=== PATIENT | female | born 1965 | race Caucasian/White ===

== ENCOUNTER 2018-09-26 13:08 | Emergency (ER) | payer BC ==
--- NOTE | 2018-09-26 14:41 | ED Physician Documentation ---
PD HPI FOCAL NEURO - Stated complaint Stated Complaint: R FOOT SWELLING/ALLERGIC REACTION - Chief complaint Chief Complaint: Allergic Rx - History obtained from History obtained from: Patient - History of Present Illness Timing - onset: How many days ago (2) Timing - duration: Days (2) Timing - details: Gradual onset Severity of deficit: Moderate Weakness: No: Face, Arm, Hand, Leg, Foot, Right, Left Numbness: Arm, Right. No: Face, Hand, Foot, Left Associated symptoms: No: Headache, Nausea / vomiting, Seizure, Syncope, Fall, Head injury, Chest pain, Neck pain, Back pain, Fever Contributing factors: negative: Anticoagulated, Vascular dz, Atrial fibrillation, Prosthetic heart valve Baseline status: positive: A&OX3, ambulatory, indep Recently seen: Not recently seen - Additional information Additional information: 52-year-old female presents to the emergency department stating that she has a bug bite to the right foot. She states that that is mildly swollen but states that she gets "strange allergic reactions". She states that since Wednesday she has had a [id number]-[id number] sensation in her right upper extremity with times when the arm will go completely numb. She has not had any other focal neurological deficits. Nothing makes it better or worse. She feels like it is worsening today however. She also states that it "feels cold on the inside". She states she has been told in the past that she has "wonky circulation". Review of Systems Ten Systems: 10 systems reviewed and negative Constitutional: denies: Fever, Chills Ears: denies: Ear pain Nose: denies: Rhinorrhea / runny nose, Congestion Cardiac: denies: Chest pain / pressure Respiratory: denies: Cough GI: denies: Abdominal Pain, Nausea, Vomiting, Diarrhea : denies: Dysuria Skin: denies: Rash Musculoskeletal: denies: Neck pain, Back pain Neurologic: denies: Headache PD PAST MEDICAL HISTORY - Past Medical History Past Medical History: No Cardiovascular: None Respiratory: None Neuro: None Endocrine/Autoimmune: None GI: None ADMINISTRATIVE COORDINATOR: None : None HEENT: Glaucoma Psych: Depression, Anxiety, Other Musculoskeletal: None Derm: None Other Past Medical History: anger disorder - Past Surgical History Past Surgical History: No - Present Medications Home Medications: Ambulatory Orders Medication Instructions Recorded Confirmed FLUoxetine [PROzac] 10 mg PO DAILY 09/26/18 09/26/18 predniSONE [Prednisone] 40 mg PO DAILY #10 tablet 09/26/18 - Allergies Allergies/Adverse Reactions: Allergies Allergy/AdvReac Type Severity Reaction Status Date / Time No Known Drug Allergies Allergy Verified 09/26/18 13:21 - Social History Does the pt smoke?: No Smoking Status: Never smoker Does the pt drink ETOH?: Yes Does the pt have substance abuse?: Yes Substance Use and Type: Marijuana - Immunizations Immunizations are current?: Yes - POLST Patient has POLST: No PD ED PE NORMAL - Vitals Vital signs reviewed: Yes - General General: Alert and oriented X 3, No acute distress, Well developed/nourished - HEENT HEENT: PERRL, Moist mucous membranes - Neck Neck: Supple, no meningeal sign - Cardiac Cardiac: RRR, Strong equal pulses - Respiratory Respiratory: No respiratory distress, Clear bilaterally - Abdomen Abdomen: Soft, Non tender, Non distended - Derm Derm: Warm and dry, No rash - Extremities Extremities: Other (Mild swelling to the right foot, no signs of infection.) - Neuro Neuro: Alert and oriented X 3, piano bench assembler 2-12 intact, No motor deficit, Normal speech, Other (Mild decreased sensation over the entirety of the right arm and wrist. Normal radial pulse. Brisk cap refill) Eye Opening: Spontaneous Motor: Obeys Commands Verbal: Oriented GCS Score: 15 - Psych Psych: Normal mood, Normal affect NIHSS - Time Time: 14:32 - Level of Consciousness Level of consciousness: (0) Alert, Keenly responsive LOC Questions: (0) Answers both Q's correct LOC Commands: (0) Performs both correctly - Gaze Best Gaze: (0) Normal - Visual Visual: (0) No loss - Facial Palsy Facial Palsy: (0) Normal, symmetrical movement - Motor Arms (both separate) Motor Arm (right): (0) No drift Motor Arm (left): (0) No drift - Motor Legs (both separate) Motor Leg (right): (0) No drift Motor Leg (left): (0) No drift - Limb Ataxia Limb Ataxia: (0) Absent - Sensory Sensory: (1) Ejrq-jv-eeymdqyx loss - Best Language Best Language: (0) No aphasia - Dysarthria Dysarthria: (0) Normal - Extinction and Inattention (formally neg Extinction and inattention: (0) No abnormality - Total Score/Results Total Score/Result: 1 Results - Vitals Vitals: Vital Signs - 24 hr 09/26/18 09/26/18 13:19 16:51 Temperature 36.8 C 36.5 C Heart Rate 59 L 50 L Respiratory 18 Rate Blood Pressure 126/88 H 156/85 H O2 Saturation 100 100 Oxygen O2 Source Room air - EKG (time done) 1446 Rate: Rate (enter#) (48) Rhythm: Sinus bradycardia [place]: Normal Intervals: Normal IA QRS: Normal Ischemia: Normal ST segments - Labs Labs: Laboratory Tests 09/26/18 09/26/18 09/26/18 15:05 15:09 15:09 WBC 6.3 RBC 4.59 Hgb 14.2 Hct 43.6 MCV 95.0 MCH 30.9 MCHC 32.6 RDW 12.6 Plt Count 212 MPV 9.1 Neut # (Auto) 3.1 Lymph # (Auto) 2.4 Clark # (Auto) 0.5 Eos # (Auto) 0.3 Baso # (Auto) 0.0 Absolute Nucleated RBC 0.00 Nucleated RBC % 0.0 Sodium 139 Potassium 3.6 Chloride 105 Carbon Dioxide 26 Anion Gap 8.0 BUN 12 Creatinine 0.8 Estimated GFR (MDRD) 75 L Glucose 91 Calcium 8.8 Phosphorus 2.7 Magnesium 2.1 Total Bilirubin 0.7 AST 19 ALT 17 Alkaline Phosphatase 62 Total Protein 7.0 Albumin 3.9 Globulin 3.1 Albumin/Globulin Ratio 1.3 Urine Color YELLOW Urine Clarity CLEAR Urine pH 7.0 Ur Specific [place] 1.015 Urine Protein NEGATIVE Urine Glucose (UA) NEGATIVE Urine Ketones NEGATIVE Urine Occult Blood NEGATIVE Urine Nitrite NEGATIVE Urine Bilirubin NEGATIVE Urine Urobilinogen 0.2 (NORMAL) Ur Leukocyte Esterase NEGATIVE Ur Microscopic Review NOT INDICATED Urine Culture Comments NOT INDICATED - Rads (name of study) head CT Radiology: Prelim report reviewed, EMP read contemporaneously, See rad report (No acute intracranial abnormality. Specifically, no evidence of acute infarct, hemorrhage, or mass lesion. ) R arm arterial doppler Radiology: Prelim report reviewed, EMP read contemporaneously, See rad report (Normal exam. Patent right upper extremity arteries. No evidence for hemodynamically significant stenosis or occlusion. ) PD MEDICAL DECISION MAKING - ED course Complexity details: reviewed results, re-evaluated patient, considered differential, d/w patient ED course: 52-year-old female with right arm paresthesias. Unclear etiology. She thinks this may be related to the allergic reaction in the foot. Will trial on steroids. No evidence of arterial insufficiency. No evidence of stroke. She should be followed up with her doctor for further testing including an MRI. Patient counseled regarding signs and symptoms for which I believe and urgent re-evaluation would be necessary. Patient with good understanding of and agreement to plan and is comfortable going home at this time This document was made in part using voice recognition software. While efforts are made to proofread this document, sound alike and grammatical errors may occur. Departure - Departure Disposition: 01 Home, Self Care Clinical Impression: Paresthesia Allergic reaction Qualifiers: Encounter type: initial encounter Qualified Code(s): T78.40XA - Allergy, unspecified, initial encounter Condition: Good Instructions: ED Allergic Reaction Local Other, ED Paraesthesias Follow-Up: MELVI THAKKAR MD [Primary Care Provider] - Prescriptions: predniSONE [Prednisone] 40 mg PO DAILY #10 tablet Comments: The cause of your symptoms is unclear today. Return if you worsen. Follow-up with your doctor for further care. Your testing is normal today You should have a brain MRI with your doctor Discharge Date/Time: 09/26/18 16:53
[2018-09-26 15:14] LABS: BASOPHILS % (AUTO) 0.2 %; EOSINOPHILS # (AUTO) 0.3 10^3/uL (0.0-0.7); EOSINOPHILS % (AUTO) 4.3 %; HGB - HEMOGLOBIN 14.2 g/dL (12.0-16.0); LYMPHOCYTES # (AUTO) 2.4 10^3/uL (1.5-3.5); LYMPHOCYTES % (AUTO) 37.1 %; MEAN CORPUSCULAR HEMOGLOBIN 30.9 pg (27.0-31.0); MEAN CORPUSCULAR HGB CONC 32.6 g/dL (32.0-36.0); MEAN PLATELET VOLUME 9.1 fL (7.9-10.8); MONOCYTES # (AUTO) 0.5 10^3/uL (0.0-1.0); MONOCYTES % (AUTO) 8.5 %; NEUTROPHILS # (AUTO) 3.1 10^3/uL (1.5-6.6); NEUTROPHILS % (AUTO) 49.4 %; PLT - PLATELET COUNT 212 10^3/uL (130-450); RED BLOOD COUNT 4.59 10^6/uL (4.20-5.40); RED CELL DISTRIBUTION WIDTH 12.6 % (12.0-15.0); WHITE BLOOD COUNT 6.3 x10^3/uL (4.8-10.8)
[2018-09-26 15:19] LABS: BILIRUBIN,URINE NEGATIVE (NEGATIVE); CLARITY,URINE CLEAR (CLEAR); GLUCOSE, URINE (UA) NEGATIVE (NEGATIVE); KETONES,URINE (UA) NEGATIVE (NEGATIVE); LEUKOCYTE ESTERASE, URINE NEGATIVE (NEGATIVE); NITRITE,URINE NEGATIVE (NEGATIVE); OCCULT BLOOD,URINE NEGATIVE (NEGATIVE); PROTEIN,URINE NEGATIVE (NEGATIVE); UROBILINOGEN,URINE 0.2 (NORMAL) E.U./dL (NORMAL)
[2018-09-26 15:27] LABS: ALBUMIN 3.9 g/dL (3.2-5.5); ALBUMIN/GLOBULIN RATIO 1.3 (1.0-2.2); BILIRUBIN,TOTAL 0.7 mg/dL (0.2-1.0); CALCIUM 8.8 mg/dL (8.5-10.3); CREATININE 0.8 mg/dL (0.4-1.0); MAGNESIUM 2.1 mg/dL (1.7-2.8); PHOSPHORUS 2.7 mg/dL (2.5-4.6)
[2018-09-26] MEDS ORDERED: predniSONE 20 MG TABLET PO STA (15:45)
--- NOTE | 2018-09-26 15:45 | CT Report ---
Reason: R arm cold, paresthesias Procedure Date: 09/26/2018 Accession Number: [id number] / [id number] Procedure: CT - HEAD WO CPT Code: FULL RESULT: EXAM: CT HEAD EXAM DATE: 09/26/2018 03:32 PM. CLINICAL HISTORY: 52-year-old woman with right arm coldness and paresthesias. COMPARISON: None. TECHNIQUE: Multiaxial CT images were obtained from the foramen magnum to the vertex. Reformats: Sagittal and coronal. IV contrast: None. In accordance with CT protocol optimization, one or more of the following dose reduction techniques were utilized for this exam: automated exposure control, adjustment of mA and/or KV based on patient size, or use of iterative reconstructive technique. FINDINGS: Parenchyma: No evidence of acute infarct, hemorrhage, or mass lesion. The parenchyma demonstrates normal attenuation characteristics. Prominent perivascular space is incidentally noted in the inferior left basal ganglia, a benign finding. Ventricles and Extra-axial Spaces: Ventricles are symmetric and normal in size. No extra-axial hemorrhage or fluid collection. Orbits: Unremarkable. Sinuses: Paranasal sinuses and mastoid air cells are clear. Extracranial Soft Tissues and Bones: Soft tissues are unremarkable. No fractures. IMPRESSION: 1. No acute intracranial abnormality. Specifically, no evidence of acute infarct, hemorrhage, or mass lesion. RADIA
--- NOTE | 2018-09-26 16:50 | Ultrasound Report ---
Reason: R arm cold, paresthesias Procedure Date: 09/26/2018 Accession Number: [id number] / [id number] Procedure: US - Duplex Upr Ext Arterial RT CPT Code: FULL RESULT: EXAM: RIGHT UPPER EXTREMITY ARTERIAL DOPPLER ULTRASOUND EXAM DATE: 09/26/2018 03:24 PM. CLINICAL HISTORY: Right arm cold, paresthesias. COMPARISON: None. TECHNIQUE: Real-time sonographic vascular imaging was performed by the environmental service aide through the upper extremity utilizing both color-flow and Doppler spectral analysis. Multiple home office representative static images were saved for review. FINDINGS: Triphasic Doppler waveforms were noted throughout the right upper extremity arterial system. Peak systolic velocities in cm/sec are as follows: Right subclavian artery: 64 proximal, 72 mid and 59 distal. Right axillary artery: 75 Right brachial artery: 68 proximal, 57 distal. Right radial artery: 47 proximal, 32 distal Right ulnar artery: 35 proximal, 40 distal. Other: None. IMPRESSION: 1. Normal exam. Patent right upper extremity arteries. No evidence for hemodynamically significant stenosis or occlusion. RADIA
[2018-09-26 16:53] VITALS: BP 156/85
== END 2018-09-26 16:53 | disposition home or self-care (01) ==
LOC: ED 13:08
DX: R20.2 Paresthesia of skin (principal); T78.40XA Allergy, unspecified, initial encounter
CPT/HCPCS: 36415; 70450; 80053; 81003; 83735; 84100; 85025; 93005; 93931; 99283; J7512; 81001; 87086

== ENCOUNTER 2020-04-17 15:19 | Outpatient (CLI) | payer BC ==
--- NOTE | 2020-04-18 09:47 | Mammography Report ---
BILATERAL DIGITAL SCREENING MAMMOGRAM 3D/2D: 04/17/2020 CLINICAL: Routine screening. Mother with postmenopausal breast cancer. Comparison is made to exams dated: 01/25/2019 mammogram, 01/03/2016 mammogram, 12/28/2017 mammogram, mammogram, and 02/09/2013 mammogram - Diagnostic No significant masses, calcifications, or other findings are seen in either breast. There has been no significant interval change. IMPRESSION: NEGATIVE There is no mammographic evidence of malignancy. A 1 year screening mammogram is recommended. This exam was interpreted at Station ID: [id number]. NOTE: For mammograms, a report in lay terms will be sent to the patient. Approximately 15% of breast malignancies will not be visualized mammographically. In the management of a palpable breast mass, a negative mammogram must not discourage biopsy of a clinically suspicious lesion. Electronically Signed By: Silvio Velasquez M.D. aty/maximorad:04/17/2020 17:22:22 ACR BI-RADS Category 1: Negative 3341F PARENCHYMAL PATTERN: (D) - The breast(s) demonstrate(s) heterogeneously dense fibroglandular ashlie odom. BI-RADS CATEGORY: (1) - 1 RECOMMENDATION: (ANNUAL) - Recommend routine annual screening mammography. [id number] 1 year screening LATERALITY: (B)
== END 2020-04-17 15:20 | disposition home or self-care (01) ==
LOC: DI 15:19
DX: Z12.31 Encounter for screening mammogram for malignant neoplasm of breast (principal); Z80.3 Family history of malignant neoplasm of breast

== ENCOUNTER 2021-04-17 15:30 | Outpatient (CLI) | payer BC ==
--- NOTE | 2021-04-17 17:18 | DEXA Report ---
PROCEDURE: Dexa Spine and/or Hip INDICATIONS: SCREENING FOR OSTEOPOROSIS TECHNIQUE: Dual energy x-ray absorptiometry (DXA) was performed on a [employer] System. Regions measur ed are the AP Spine, femoral neck, and if needed forearm. COMPARISON: None. FINDINGS: Lumbar Spine: Bone Mineral Density 1.48 for g/cm/cm,T score 2.5. Left Hip: Bone Mineral Density 1.155 g/cm/cm,T score 1.2. Left Femoral Neck: Bone Mineral Density 1.153 g/cm/cm, T score 0.8. (T score greater or equal to -1.0: NORMAL) (T score from -1.1 to -2.4: OSTEOPENIA) (T score less than or equal to -2.5 to: OSTEOPOROSIS) Impression: Based on WHO criteria, the patient's bone mineral density is normal. Patients with diagnosis of osteoporosis or osteopenia should have regular bone mineral density assess ment. For those eligible for Medicare, routine testing is allowed once every 2 years. Testing frequ ency can be increased for patients who have rapidly progressing disease or for those who are receivin g medical therapy to restore bone mass. Reviewed by: Cameron Ferrera MD on 04/17/2021 5:17 PM PST Approved by: Cameron Ferrera MD on 04/17/2021 5:17 PM PST Station ID: [id number]
== END 2021-04-17 23:59 | disposition home or self-care (01) ==
LOC: DI 15:30
PROVIDERS: ATTEND Family Medicine
DX: Z13.820 Encounter for screening for osteoporosis (principal)

== ENCOUNTER 2022-01-20 11:49 | Day surgery (SDC) | payer OTHER ==
[2022-01-20] MEDS ORDERED: PROPOFOL 200 MG/20 ML VIAL IVP ONE (12:20)
[2022-01-20] MEDS ORDERED: MIDAZOLAM 2 MG/2 ML VIAL ONE (12:21)
--- NOTE | 2022-01-20 12:25 | ANESTHESIA ---
Pre-Anesthesia VS, & Labs - Diagnosis hx colon polyps - Procedure colonoscopy Vital Signs: Temp Pulse Resp BP Pulse Ox O2 Flow Rate 36.7 C 57 L 16 134/88 H 98 0 01/20/22 12:12 01/20/22 12:12 01/20/22 12:12 01/20/22 12:12 01/20/22 12:12 01/20/22 12:12 Height: 5 ft 6 in Weight (kg): 73.9 kg Body Mass Index: 26.3 BMI Classification: Overweight - NPO >8 hours - Is Patient ?: No - Lab Results Lab results reviewed: Yes Home Medications and Allergies Home Medications: Ambulatory Orders Timolol 0.25% Ophth Drops [Timoptic 0.25% Ophth Drops] 1 tab EACHEYE DAILY FLUoxetine [PROzac] 60 mg PO DAILY 09/26/18 Timolol 0.25% Ophth Drops [Timoptic 0.25% Ophth Drops] 1 tab EACHEYE DAILY 01/19/22 Allergies/Adverse Reactions: Allergies Allergy/AdvReac Type Severity Reaction Status Date / Time No Known Drug Allergies Allergy Verified 09/26/18 13:21 Anes History & Medical History - Anesthetic History Anesthesia Complications: reports: No previous complications Family history of Anesthesia Complications: Denies Family history of Malignant Hyperthermia: Denies - Medical History Cardiovascular: reports: None Pulmonary: reports: None Gastrointestinal: reports: None Urinary: reports: None Neuro: reports: None Musculoskeletal: reports: None Endocrine/Autoimmune: reports: None Blood Disorders: reports: None Skin: reports: None Smoking Status: Never smoker - Surgical History General: reports: Colonoscopy Exam General: Alert, Oriented x3, Cooperative Dental: WNL Mouth Openin Fingerbreadth Neck Mobility: Normal Mallampati classification: II Thyromental Distance: 4-6 cm Respiratory: Lungs clear, Normal breath sounds, No respiratory distress Plan Anesthesia Type: Total IV Consent for Procedure(s) Verified and Reviewed: Yes Code Status: Attempt Resuscitation ASA classification: 1-Healthy patient Is this case an emergency?: No
[2022-01-20] MEDS ORDERED: LACTATED RINGERS 1,000 ML IV ONE ×2 (12:33→13:06)
--- NOTE | 2022-01-20 13:19 | ANESTHESIA POST OP EVALUATION ---
Anesthesia Post Eval - Post Anesthesia Eval Vitals: Last Vital Signs Temp 36.7 C 01/20/22 12:12 Pulse 57 L 01/20/22 12:12 Resp 16 01/20/22 12:12 BP 134/88 H 01/20/22 12:12 Pulse Ox 98 01/20/22 12:12 O2 Flow Rate 0 01/20/22 12:12 CV Function Including HR & BP: Stable Pain Control: Satisfactory Nausea & Vomiting: Negative Mental Status: Baseline Respiratory Status: Airway Patent Hydration Status: Satisfactory Anesthesia Complications: None
[2022-01-20 14:08] VITALS: BP 136/81
== END 2022-01-20 11:50 | disposition home or self-care (01) ==
LOC: SDS 11:49
PROVIDERS: ATTEND Surgery
DX: Z12.11 Encounter for screening for malignant neoplasm of colon (principal); F41.9 Anxiety disorder, unspecified; Z86.010 Personal history of colon polyps
CPT/HCPCS: 45378; J7120

== ENCOUNTER 2023-09-21 10:43 | Outpatient (CLI) | payer OTHER ==
--- NOTE | 2023-09-22 08:39 | Mammography Report ---
BILATERAL DIGITAL SCREENING MAMMOGRAM 3D/2D: 09/21/2023 CLINICAL: Routine screening. Family history of breast cancer. Comparison is made to exams dated: 04/17/2020 mammogram - [facility], 01/25/2019 ma mmogram, and 12/28/2017 mammogram - Diagnostic Both breasts are heterogeneously dense, which may obscure small masses (category c / 51-75% glandular tissue). There is a benign calcification in the right breast. There also is a biopsy clip in the left breast. No significant masses, calcifications, or other findings are seen in either breast. There has been no significant interval change. IMPRESSION: BENIGN There is no mammographic evidence of malignancy. A 1 year screening mammogram is recommended. Based on Tyrer-Cuzick model (a risk assessment model), the patient's lifetime risk is 28.5% and her 1 0 year risk is 11.8%. If a patient has an elevated risk, a more comprehensive evaluation should be co nsidered and/or a referral to a genetic counselor. The [employer], [employer], and NCCN Guidelines advise the consideration of Breast MRI as an adjunct to screening mammo graphy in patients whose "Lifetime risk to develop breast cancer" is 20% or higher. This exam was interpreted at Station ID: [id number]. NOTE: For mammograms, a report in lay terms will be sent to the patient. Approximately 15% of breast malignancies will not be visualized mammographically. In the management of a palpable breast mass, a negative mammogram must not discourage biopsy of a clinically suspicious lesion. Electronically Signed By: Mariella villa/ivette:09/21/2023 12:19:54 letter sent: No_Letter ACR BI-RADS Category 2: Benign Finding(s) 3342F PARENCHYMAL PATTERN: (D) - The breast(s) demonstrate(s) heterogeneously dense fibroglandular parenchy ma. BI-RADS CATEGORY: (2) - 2 RECOMMENDATION: (ANNUAL) - Recommend routine annual screening mammography. [id number] 1 year screening LATERALITY: (B)
== END 2023-09-21 10:44 | disposition home or self-care (01) ==
LOC: DI.S 10:43
PROVIDERS: ATTEND Family Medicine
DX: Z12.31 Encounter for screening mammogram for malignant neoplasm of breast (principal); Z80.3 Family history of malignant neoplasm of breast; R92.333 Mammographic heterogeneous density, bilateral breasts; R92.1 Mammographic calcification found on diagnostic imaging of breast